=== PATIENT | female | born 1985 | race American Indian/Alaskan Native ===

== ENCOUNTER 2019-07-26 06:14 | Emergency (ER) | payer OTHER ==
[2019-07-26 06:21] VITALS: BP 93/66
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
[2019-07-26] MEDS ORDERED: NORCO 5/325 PO ONE (07:53)
[2019-07-26] MEDS ORDERED: FLEXERIL PO ONE (07:53)
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
== END 2019-07-26 10:23 | disposition home or self-care (01) ==
LOC: ED 06:14
DX: S39.012A Strain of muscle, fascia and tendon of lower back, initial encounter (principal); M79.602 Pain in left arm; R51 Headache; V89.2XXA Person injured in unspecified motor-vehicle accident, traffic, initial encounter; Y93.89 Activity, other specified; Y92.410 Unspecified street and highway as the place of occurrence of the external cause; Y99.8 Other external cause status
CPT/HCPCS: 72100